=== PATIENT | female | born 1975 | race African-American/Black ===

== ENCOUNTER 2017-12-04 15:52 | Emergency (ER) | payer MEDICAID ==
[~2017-12-04] VITALS: Ht 162.6 cm; Wt 75.0 kg
[2017-12-04 15:57] VITALS: BP 151/95
== END 2017-12-04 20:28 | disposition left against medical advice (07) ==
LOC: ER 16:50
DX: G43.909 Migraine, unspecified, not intractable, without status migrainosus (principal); R42 Dizziness and giddiness; R11.2 Nausea with vomiting, unspecified
CPT/HCPCS: 99281